=== PATIENT | female | born 1990 | race African-American/Black ===

== ENCOUNTER 2025-02-11 14:50 | Emergency (ER) | payer MEDICAID, OTHER ==
[~2025-02-11] VITALS: Ht 175.3 cm; Wt 70.0 kg
[2025-02-11 15:08] VITALS: BP 114/64; PULSE 94; RESP 18; TEMP 97.8; O2SAT 100
--- NOTE | 2025-02-11 16:03 | ED.PDOC ---
General HPI Comments 35-year-old female presents here with right back pain since yesterday. She reports that she felt some mild frequency in urination yesterday and urine was mildly foul-smelling. Denies any dysuria though. Denies any vaginal bleeding. She states her baby has been very active and last movement was proximally 1 hour the. Patient is currently 21 weeks . . No complications in her last . She has had no care during this as [place] and [place] to get insurance in [place]. She denies any abdominal pain. However states the pain in her back as significant. Denies any fever or chills nausea vomiting diarrhea. Chief Complaint: Back Pain Time Seen by MD: 15:05 Allergies: Coded Allergies: NO KNOWN ALLERGIES (Unverified , 12/07/11) Information Source: Patient Mode of Arrival: Ambulatory Past Medical History PAST MEDICAL HISTORY: Asthma, Seizures Surgical History: Denies all surgeries Social History Smoker: Non-Smoker Alcohol: Denies ETOH Use Drugs: Denies Drug Use Lives In: Home All Other Systems: Reviewed and Negative Physical Exam General Appearance: Normal, Severe Distress (Patient appears to be in intense pain while in triage) HEENT: Normal ENT Inspection, Pharynx Normal, TMs Normal Neck: Full Range of Motion, Non-Tender, Normal, Normal Inspection Respiratory: Chest Non-Tender, Lungs Clear, No Accessory Muscle Use, No Respiratory Distress, Normal Breath Sounds Cardiovascular: No Edema, No JVD, No Murmur, No Gallop, Normal Peripheral Pulses, Regular Rate/Rhythm Breast Exam: Deferred Gastrointestinal: No Organomegaly, Non Tender, No Pulsatile Mass, Normal Bowel Sounds, Soft, Other (Right CVA tenderness) Genitalia: Deferred Pelvic: Deferred Rectal: Deferred Extremities: No calf tenderness, Normal capillary refill, Normal inspection, Normal range of motion, Non-tender, No pedal edema Musculoskeletal : Apperance: Normal Neurologic: Alert, 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 Was a procedure done?: No Differential Diagnosis Kidney stone (Female): N/A Kidney stone (Male): N/A Penile/Scrotal: N/A Urinary Problem (Male): N/A Urinary Problem (Female): Ectopic , Pyelonephritis, Urinary retention, Urolithiasis, UTI, Vaginitis Other Differential Diagnosis Premature labor, placental abruption X-Ray, Labs, Meds, VS Vital Signs Date Time Temp Pulse Resp B/P (MAP) Pulse Ox O2 Delivery O2 Flow Rate FiO2 02/11/25 15:08 97.8 94 18 114/64 (81) 100 97.8 35-year-old female currently 21 here with right flank pain, mild dysuria. Patient appears to be an intense pain in triage. Although she declines abdominal pain. Given her intensity to pain concern for placental abruption, premature contractions. Also concern for possible pyelonephritis. At this time patient has been taken to [facility] for further evaluation. Time of 1ST Reevaluation: 16:02 Reevaluation 1ST: Unchanged Patient Education/Counseling: Diagnosis, Treatment Family Education/Counseling: No Family Present SEPSIS Sepsis Screen Date sepsis recognized/suspect: Feb 11, 2025 Time Sepsis recognized/suspect: 1500 Recent Procedure: No On Antibiotic Therapy: No Respiratory Rate >20: No Heart Rate >90: Yes Temp<36 C (96.8 F) or >38.3 C: No SBP <90 or MAP <65 mmHG: No New Acute Mental Status Change: No Is the patient on CPAP, BIPAP,: No Vital Signs Date Time Temp Pulse Resp B/P (MAP) Pulse Ox O2 Delivery O2 Flow Rate FiO2 02/11/25 15:08 97.8 94 18 114/64 (81) 100 97.8 Departure 1 Departure Time of Disposition: 16:02 Impression: Primary Impression: Flank pain Disposition: 09 ADMITTED INPATIENT Condition: Fair Critical Care Note Critical Care Time?: No Stability Stability form required: No Heart Score Heart Score: Heart Score Response (Comments) Value History N/A 0 EKG N/A 0 Age N/A 0 Risk Factors N/A 0 Troponin N/A 0 Total 0 WILDER GARSIA MD Feb 11, 2025 16:03
--- NOTE | 2025-02-11 16:08 | DVH ---
INDICATION: Back Pain TECHNIQUE: Multiple real-time sonographic images of the kidneys and bladder were obtained. COMPARISON: None FINDINGS: RIGHT kidney measures 11.7 cm in length. Mild hydronephrosis LEFT kidney measures 0.4 cm in length. No hydronephrosis. No large intraluminal masses are seen in the bladder. Prevoid bladder volume 62 mL. Patient had no urge to void. IMPRESSION: 1. Right kidney measures 11.7 cm. Left kidney measures 10.4 cm. 2. Mild right hydronephrosis. 3. Prevoid bladder volume 62 mL. Patient had no urge to void.
[2025-02-11 16:17] LABS: Urine Protein, UAD Negative (Negative)
--- NOTE | 2025-02-11 16:17 | DVH ---
Technique: Real-time ultrasound images through the pelvis using a transabdominal transducer. Indication: No Care/ Cervical Length Comparison: None Findings: Please note this examination is not performed for anatomical survey. There is a single live intrauterine gestation. Biparietal diameter 5 cm, 21 weeks 1 day. Head circumference 18.8 cm, 21 weeks, 0 days. Abdominal circumference 15.3 cm, 20 weeks 3 days. Femur length 3.3 cm, 20 weeks 3 days. Estimated weight of 361 g. heart rate of 153 beats per minute. Placenta is posteriorly positioned. lie is breech. Cervical length of 4 cm Composite ultrasound age of 20 weeks and 5 days. Impression: As above
[2025-02-11 16:22] LABS: Amphetamine Screen, Urine Neg (NEGATIVE); Barbiturate Scree,Urine Neg (NEGATIVE); Benzodiazephine Screen, Urine Neg (NEGATIVE); Cannabinoid Screen, Urine Neg (NEGATIVE); Cocaine Screen, Urine Neg (NEGATIVE); Opiate Scree,Urine Neg (NEGATIVE); Phencyclidine Screen, Urine Neg (NEGATIVE)
[2025-02-11 17:31] LABS: Vaginal Trichomonas Not Present
[2025-02-11 17:32] LABS: Vaginal Bacteria Moderate; Vaginal Clue Cells Few; Vaginal Epithelial Cells Many
[2025-02-11] MEDS ORDERED: CLIN1CAP70 PO (17:40)
--- NOTE | 2025-02-12 22:13 | DVHDS2 ---
Discharge Summary Date of Admission Feb 11, 2025 at 15:17 Date of Discharge: Feb 11, 2025 Admitting Diagnosis 20 wk back pain Labs/Diagnostic Data: Laboratory Results Test 02/11/25 17:10 02/11/25 15:30 Vaginal WBC (Wet Prep) Moderate Vaginal RBC (Wet Prep) Rare Vaginal Epithelial Cells (Wet Prep) Many Vaginal Bacteria (Wet Prep) Moderate Vaginal Trichomonas (Wet Prep) Not present Vaginal Yeast (Wet Prep) None seen Vaginal Clue Cells (Wet Prep) Few Urine Color Light-yellow (Yellow) Urine Clarity Clear (Clear) Urine pH 8.0 (5.0-9.0) Urine Specific [place] 1.021 (1.001-1.035) Urine Protein Negative (Negative) Urine Ketones 1+ (Negative) Urine Blood Negative /uL (Negative) Urine Nitrite Negative (Negative) Urine Bilirubin Negative (Negative) Urine Urobilinogen Normal mg/dL (Negative) Urine Leukocyte Esterase Negative /uL (Negative) Urine RBC <1 /hpf (0 - 4) Urine Microscopic WBC 1 /HPF (0-5) Urine Squamous Epithelial Cells Few /hpf (<5) Urine Bacteria Few /hpf (None Seen) Urine Glucose Normal mg/dL (Normal) Urine Opiates Screen Neg (NEGATIVE) Urine Fentanyl Screen Neg (NEGATIVE) Urine Barbiturates Screen Neg (NEGATIVE) Urine Phencyclidine Screen Neg (NEGATIVE) Urine Amphetamines Screen Neg (NEGATIVE) Urine Benzodiazepines Screen Neg (NEGATIVE) Urine Cocaine Screen Neg (NEGATIVE) Urine Cannabinoids Screen Neg (NEGATIVE) Brief Hx & Hospital Course: US reassuring heart tones reassuring Condition at Discharge: Good Final Diagnosis/Problems List Low back pain Discharge Disposition: Home Discharge Instruct/Medications Diet: Regular Activity: Light activity Scheduled Clindamycin Hcl (Clindamycin Hcl), 1 CAP PO TID, (Reported) Discharge Statement: "Patient was advised to return to the ER or call 911 if any headaches, dizziness, shortness of breath, chest pain, abdominal pain, bleeding, fevers, or worsening of medical condition. Patient was counseled about treatment plan, medications, possible side effects, patientverbalized understanding. All questions were answered to the best of my ability. This discharge took greater then 30 minutes in planning, reviewing documentation, counseling the patient, and discussing with other team members." ASSESSMENT ASSESSMENT Assessment Visit Coding OBGYN Date of Service: Feb 11, 2025 Billing Provider: CLARICE ROYAL DO CLASSIFICATION ANALYST Common Visit Codes: 49399-BHL/OBS SAME DATE (LOW), 26419-JXK/OBS SAME DATE (MOD), 10841-CDA/OBS SAME DATE (HIGH) CLASSIFICATION ANALYST Procedure Codes: 50661-41- NON-STRESS TEST CLARICE ROYAL DO Feb 12, 2025 22:13
== END 2025-02-11 17:51 | disposition home or self-care (01) ==
LOC: ER 14:50 → LDRP 15:17
PROVIDERS: ADMIT Obstetrics & Gynecology; ATTEND Obstetrics & Gynecology
DX: O99.891 Other specified diseases and conditions complicating pregnancy (principal); M54.9 Dorsalgia, unspecified; R35.0 Frequency of micturition; O99.512 Diseases of the respiratory system complicating pregnancy, second trimester; J45.909 Unspecified asthma, uncomplicated; Z3A.20 20 weeks gestation of pregnancy; Z79.899 Other long term (current) drug therapy; Z98.890 Other specified postprocedural states
CPT/HCPCS: 76775; 76805; 80307; 81001; 81002; 87210; 99284; G0378; 59025; 94760